=== PATIENT | female | born 1975 | race Caucasian/White ===

== ENCOUNTER 2025-01-29 10:24 | Outpatient (AMB) | payer MEDICAID, SELFPAY ==
--- NOTE | 2025-01-29 10:47 | GSCOFFNT_ITS ---
Vital Signs - [facility] 01/29/25 10:48 Height 1.73 m Height Method Stated Weight 104.865 kg Weight Measurement Method Standing Scale BMI 35.1 BP 117/82 Blood Pressure Source Automatic Cuff Blood Pressure Location Right Upper Arm Position Sitting Respiration 18 Pulse 76 Pulse Source Monitor Temp 98.0 F Temp Source Temporal Artery Scan Pulse Oximetry (%) 96 Oxygen Delivery Method Room Air Med/Allergies Allergies & Medications Allergies No Known Drug Allergies Allergy (Verified 01/29/25 10:48) Medication Reconciliation cetirizine 10 mg tablet 10 mg PO QDAY PRN 01/29/25 [History Confirmed 01/29/25] cholecalciferol (vitamin D3) 325 mcg (13,000 unit) capsule 325 mcg PO QWEEK 01/29/25 [History Confirmed 01/29/25] duloxetine 60 mg capsule,delayed release 60 mg PO QDAY 01/29/25 [History Confirmed 01/29/25] fluticasone propionate 50 mcg/actuation nasal spray,suspension (Allergy Relief (fluticasone)) 1 spray intranasal QDAY 01/29/25 [History Confirmed 01/29/25] lactulose 10 gram/15 mL oral solution 10 g PO QDAY 01/29/25 [History Confirmed 01/29/25] linaclotide 145 mcg capsule (Linzess) 145 mcg PO QDAY 01/29/25 [History Confirmed 01/29/25] mecobalamin (vitamin B12) 1,000 mcg chewable tablet 1,000 mcg PO QDAY 01/29/25 [History Confirmed 01/29/25] montelukast 10 mg tablet 10 mg PO QDAY 01/29/25 [History Confirmed 01/29/25] multivitamin combination no.58-folic acid 1,000 mcg chewable tablet (DermacinRx Davimet) tab PO 01/29/25 [History Confirmed 01/29/25] mupirocin 2 % topical ointment 1 applic topical BID 01/29/25 [History Confirmed 01/29/25] polyethylene glycol 3350 17 gram/dose oral powder (Miralax) 4 g PO QDAY 01/29/25 [History Confirmed 01/29/25] sodium phosphates 19 gram-7 gram/118 mL enema (Fleet Enema) 118 ml [place] QDAY PRN 01/29/25 [History Confirmed 01/29/25] tirzepatide (weight loss) 10 mg/0.5 mL subcutaneous pen injector (Zepbound) 10 mg subcut QWEEK 01/29/25 [History Confirmed 01/29/25] trazodone 50 mg tablet 50 mg PO QDAY 01/29/25 [History Confirmed 01/29/25] triamcinolone acetonide 0.1 % topical cream 1 applic topical BID 01/29/25 [History Confirmed 01/29/25] verapamil 40 mg tablet 40 mg PO BID 01/29/25 [History Confirmed 01/29/25] vonoprazan 10 mg tablet (Voquezna) 10 mg PO QDAY 01/29/25 [History Confirmed 01/29/25] MA Intake Visit Data Collection New Patient or Established: New Patient (never been to [facility]) Reason for Visit:: CONSTIPATION Pain Present Currently: Yes Pain Location: Buttock Pain scale:: 3 Pain Scale Used: Maacrio-Savage/Numerical Break Out Worker Required: No PCP or OBGYN visit in last 3 months: Yes Hx Now: No Do You Feel Safe at Home: Yes Authorities Contacted: N/A Smoking Status Smoking Status: Never smoker Immunization / Flu Flu Vaccine in the Last 12 Months: Yes Flu Vaccine Exclusion Criteria: Already Received Past Medical History Social History SMOKING STATUS: Smoking status: Never smoker Travel Risk Travel Hx Recent Travel: No HPI HPI Narrative 49F with migraines, depression referred for constipation. Pt states she has long had symptoms of hard stools and needing to strain to defecate. She drinks about 64oz of water daily and does not take any fiber supplements but has tried those in the past. She denies any changes in stool caliber, blood in stool, anorexia and unintentional weight loss, and has not yet had a colonoscopy PMH: Migraines, depression PSHx: Csections Meds: Includes zepbound, no antiplt or anticoagulation Allergies: NKDA Family hx: No known CRC ROS Review of Systems Systems Reviewed: All systems reviewed, normal except as documented Objective/Exam General General Appearance: alert, cooperative and well groomed Resp Respiratory exam: Absent respiratory distress Assessment & Plan Diagnosis / Problem List (1) Encounter for screening colonoscopy: Status: Acute Assessment & Plan: 49F with migraines, depression referred for longstanding constipation. I explained benefits/risks of colonoscopy including bleeding, perforation and/or the need to abort prematurely for safety. I also explained conscious sedation and prep. All questions were answered and pt is agreeable to proceeding Office Procedures GNS Level of Care Nursing/Assessment Patient Status: Initial/New Patient Nursing Assessment/Reassesment: Medication Reconciliation, Update PMH in EMR and Vital Signs Coordination of Care: Complex Care and Chronic Disease 1-5, Education Complex Pt/Fam, Consent,records obtained, informed consent, Results/Orders obtained and Staff clarify orders New Patient Charge New Patient Point Assignment: [id number] New Patient Point Charge: JEWELRY SALES COORDINATOR Level 3 ([id number]) Patient Portal Questionaires Social History Tobacco History Smoking Status: Never smoker Domestic Abuse History Do You Feel Safe at Home: Yes Review of Systems Report any current symptoms Only answer those that you have currently: Past Medical History Past Medical History Have you ever been diagnosed with any of the following:
[2025-01-29 10:48] VITALS: BP 117/82; PULSE 76; RESP 18; TEMP 36.7; O2SAT 96; BMI 35.1
== END 2025-01-29 11:14 | disposition home or self-care (01) ==
PROVIDERS: PCP Physician Assistant Medical; Referring Provider Physician Assistant Medical; Supervising Provider Surgery; Visit Provider Surgery
DX: Z12.11 Encounter for screening for malignant neoplasm of colon (principal); K59.00 Constipation, unspecified
CPT/HCPCS: 99203; G0463